=== PATIENT | female | born 1950 | race African-American/Black ===

== ENCOUNTER → 2016-06-28 | Outpatient (CLI) | payer BC, OTHER ==
[~2016-06-28] VITALS: Ht 165.1 cm; Wt 73.5 kg
[~2016-06-28] MED LIST: ADULT LOW DOSE81 MG PO; ALKA-SELTZER PL25 MG PO; ATENOLOL-CHLOR1 EACH PO; CELEBREX 200 M200 MG PO; ESTRO TOP; ESTROGEL; ESTROGEL50 GM; HYDROCODON-ACE1 EAC7 PO; HYDROCODON-ACE1 EACH PO; HYDROCODONE-AP1 EAC6 PO; HYDROXYCHLOROQ200 M1 PO; IMDUR 30 MG TAB30 M1 PO; MEDROL DOSPAK21 TA1 PO; MEDROLDOSEPACK PO; METFORMIN HCL500 MG PO; PROGESTERONE200 MG PO; PROMETRIUM100 MG PO; PROTONIX 20 MG20 M1 PO; PROTONIX40 M2 PO; SONATA10 MG PO; SUDAFED 12 HR120 MG PO; TESTO TOP; TESTOSTERONE TROCHE; TRADJENTA PO; VICODIN 5-5001 EACH PO; ZOCOR 10 MG TAB10 MG PO; [UNRECOGNIZED DRUG - OTHER] PO
--- NOTE | ~2016-06-28 | HPC ---
[facility] [place] [address] PAIN MANAGEMENT CONSULTATION Name: BRANDO GOODRICH Room #: [facility] MTyler.#: [id number] Admission: 06/28/16 Attend Phys: Denver Almanzar MD Discharge: Date of : 54 Report #: [id number] THIS REPORT FOR: //name// CC: Esthela Almanzar DATE OF SERVICE: 06/28/2016 CHIEF COMPLAINT: Pain has been better, but is starting to increase. FOLLOWUP HISTORY: The patient is a 66-year-old female who has been followed in the pain clinic because of lumbar radiculopathy. She has undergone physical therapy. She feels that physical therapy has been helpful. She notes that she is able to engage in activities which were not possible before the physical therapy. She continues to do the exercises which had been prescribed. Overall, she feels that her pain has improved and she notes greater mobility with the physical therapy activities. She rates her pain as a 5/10. She continues to have pain and discomfort in the low back area with pain radiating down into both legs. She is having some numbness and tingling sensation in her feet. She notes that the pain improves with hot bath, rest, sitting, massage as well as with stretching. She has returned today for another epidural steroid injection. These are quite helpful in the past and she would like to proceed with another. PHYSICAL EXAMINATION: Blood pressure is 114/86, pulse 76, respiratory rate 14, room air saturation is 97%. The patient's BMI is 27. She has pain and discomfort in the lower portion of her back with pain radiating down into both buttocks area in the L3-L4 distribution bilaterally. IMPRESSION: 1. Lumbar radiculopathy. 2. Diabetes. 3. Hyperlipidemia. RECOMMENDATIONS: We will proceed with another epidural steroid injection. The patient gets greater than 50% improvement after the injections and would like to proceed with another. Risks and benefits were again reviewed. Possible complications were discussed. The patient elects to proceed. PROCEDURE NOTE: The patient was placed in the prone position. Fluoroscopy was used to identify the L3-L4 interspace. This area had been sterilely prepped with Betadine and infiltrated with 0.25% bupivacaine. A total of 80 mg Depo-Medrol, 40 mg triamcinolone and 2 mL of 0.25% bupivacaine were injected. The patient tolerated the procedure well. She will monitor blood glucose [address] [address] PAIN MANAGEMENT CONSULTATION Name: BRANDO GOODRICH Room #: REG CLI NevaehMadeline#: [id number] Admission: 06/28/16 Attend Phys: Denver Almanzar MD Discharge: Date of : 54 Report #: [id number] levels. We would like to thank you for letting us participate in her care. We hope she continues to improve. <ELECTRONICALLY SIGNED> By: Denver Almanzar MD 07/16/16 1018 1314 [id number] Denver Almanzar MD /andrea
[2016-06-28 11:42] VITALS: BP 114/86
== END | disposition home or self-care (01) ==
LOC: PAIN 07:19
DX: M54.16 Radiculopathy, lumbar region (principal); E78.5 Hyperlipidemia, unspecified; E11.9 Type 2 diabetes mellitus without complications; G89.29 Other chronic pain

== ENCOUNTER → 2016-08-28 | Outpatient (CLI) | payer BC, OTHER ==
[~2016-08-28] VITALS: Ht 165.1 cm; Wt 72.7 kg
--- NOTE | ~2016-08-28 | HPC ---
[facility] [address] [place] [address] PAIN MANAGEMENT CONSULTATION Name: BRANDO GOODRICH Room #: REG [facility].#: [id number] Admission: 08/28/16 Attend Phys: Denver Almanzar MD Discharge: Date of : 54 Report #: [id number] THIS REPORT FOR: //name// CC: Esthela Almanzar The patient was seen on 08/28/[address] Nimesh Almanzar. FOLLOWUP COMPLAINT: "Here for an injection, but I think I am catching a cold." FOLLOWUP HISTORY: The patient is a 66-year-old female who has been followed in the pain clinic because of pain involving her lumbar area. She suffers from lumbar radiculopathy in the L3-L4 distribution. She has noted some scratchiness in her throat. She has noted some bit of a temperature. She is experiencing some muscle myalgias. She feels like she may be catching a cold. PHYSICAL EXAMINATION: VITAL SIGNS: Blood pressure is 124/96, pulse 123, respiratory rate 16, , saturation is 99%. GENERAL: Height 5 feet 5 inches, weight 72 kilograms. BMI is 26. HEENT: The patient has noted the onset of a scratchy throat. She is having some increased cough. She does feel somewhat achy and she does not feel 100%. IMPRESSION: 1. sore throat, which is increasing, increased cough, elevated temperature with some mild fascial pain as well as some discomfort in the joints. Possibly onset of flu-like symptoms. 2. Lumbar radiculopathy in the L3-L4 position, which increased, improves by greater than 50% after epidural steroid injections. 3. Diabetes. 4. Hyperlipidemia. RECOMMENDATIONS: We discussed treatment options with the patient. Given that she is having some similar symptoms consistent with the flu, she will return next week for possibility of an epidural steroid injection. She feels ill and I would recommend that she remained home this week. She could return to work on 09/02/2016. She does have a mask over her face because of her respiratory symptoms. By: 1207 1247 Denver Almanzar MD /nt
[2016-08-28 09:48] VITALS: BP 124/96
== END | disposition home or self-care (01) ==
LOC: PAIN 08-23 11:09
DX: M54.16 Radiculopathy, lumbar region (principal); E11.9 Type 2 diabetes mellitus without complications; E78.5 Hyperlipidemia, unspecified; I10 Essential (primary) hypertension

== ENCOUNTER → 2016-09-06 | Outpatient (CLI) | payer BC, OTHER ==
[~2016-09-06] VITALS: Ht 165.1 cm; Wt 73.8 kg
--- NOTE | ~2016-09-06 | HPC ---
[facility] [place] [address] PAIN MANAGEMENT CONSULTATION Name: BRANDO GOODRICH Room #: REG LISA Nevaeh.#: [id number] Admission: 09/06/16 Attend Phys: Denver Almanzar MD Discharge: Date of : 54 Report #: [id number] THIS REPORT FOR: //name// CC: Esthela Almanzar DATE OF SERVICE: 09/06/2016 PRIMARY CARE PHYSICIAN: Esthela Castro M.D. FOLLOWUP COMPLAINT: "My cold is better." FOLLOWUP HISTORY: The patient is a 66-year-old female who has been seen in the pain clinic for quite a number of years. She suffers from lumbar radiculopathy. She finds that epidural steroid injections are quite beneficial. She was here last week, but unable to undergo procedure secondary to being ill. She has returned today for an epidural steroid injection. She rates her pain as a 7/10. She is having pain in the lower portion of her back with pain, which is going bilaterally down into her legs with numbness, tingling and this involves the anterior portion of her thighs. PHYSICAL EXAMINATION: VITAL SIGNS: Blood pressure 115/77, pulse 92, respiratory rate 14 and room air saturation is 96. ASSESSMENT: History of lumbar radiculopathy. Now feeling better that her cold has resolved. She would like to proceed with an epidural steroid injection. Pain continues to be in the L3-L4 distribution bilaterally. IMPRESSION: 1. Lumbar radiculopathy. 2. Diabetes. 3. Hyperlipidemia. RECOMMENDATIONS: We will proceed with an epidural steroid injection. Risks and benefits were again reviewed and the patient elects to proceed. PROCEDURE NOTE: The patient was placed in the prone position. Fluoroscopy was used to identify the L3-L4 interspace. This area had been sterilely prepped with Betadine and infiltrated with 0.25% bupivacaine. Total of 80 mg Depo-Medrol, 40 mg triamcinolone and 2 mL of 0.25% bupivacaine was injected. The patient tolerated the procedure well. There were no complications. We [address] [address] PAIN MANAGEMENT CONSULTATION Name: BRANDO GOODRICH Room #: REG CLAranza Steve#: [id number] Admission: 09/06/16 Attend Phys: Denver Almanzar MD Discharge: Date of : 54 Report #: [id number] would like to thank you for letting us participate in her care. The patient's pain decreased from 7-0 at the time of discharge. By: [id number] [id number] Denver Almanzar MD /nt
[2016-09-06 13:48] VITALS: BP 115/77
== END | disposition home or self-care (01) ==
LOC: PAIN 07:09
DX: M54.16 Radiculopathy, lumbar region (principal); E11.9 Type 2 diabetes mellitus without complications; E78.5 Hyperlipidemia, unspecified

== ENCOUNTER → 2016-10-23 | Outpatient (CLI) | payer BC, OTHER ==
[~2016-10-23] VITALS: Ht 165.1 cm; Wt 72.4 kg
--- NOTE | ~2016-10-23 | HPC ---
[facility] [place] [address] PAIN MANAGEMENT CONSULTATION Name: BRANDO GOODRICH Room #: REG LISA VelardeMadelineAllison.#: [id number] Admission: 10/23/16 Attend Phys: Denver Almanzar MD Discharge: Date of : 54 Report #: [id number] THIS REPORT FOR: //name// CC: Esthela Almanzar DATE OF SERVICE: 10/23/2016 FOLLOWUP COMPLAINT: I have got some pain in the back. FOLLOWUP HISTORY: The patient is a 66-year-old female who has been followed in the pain clinic because of lumbar radiculopathy. She has undergone epidural steroid injections. She generally gets greater than 50% benefit after each epidural steroid injection. She has noticed that her pain has recurred. She rates it as a 5/10 at this juncture. She is experiencing pain in the low back area with pain involving her right groin as well. She does have numbness and tingling in her feet. The right side/right leg is most problematic. She would like to proceed with another epidural steroid injection. She has had no problems with them in the past. She has no problems with complications from steroid use. She does have diabetes and monitors her blood sugar level, it has not been problematic in the past. PHYSICAL EXAMINATION: Blood pressure is 113/72, pulse 92, respiratory rate 16, room air saturation is 98%. The patient has pain and discomfort radiating down into the lower portion of her back involving the right leg, right groin with numbness and tingling in her feet. IMPRESSION: Lumbar radiculopathy improves greater than 50% with epidural steroid injections. The patient also has some pain and discomfort involving the right groin area. Movement of her hip does cause some pain focussing in the groin area. We will examine this with an x-ray with an anterior and lateral views. We will proceed at this juncture with an epidural steroid injection. IMPRESSION: 1. Lumbar radiculopathy with pain radiating down into the right leg with numbness and tingling. 2. Right groin pain, which is not inconsistent with hip pathology. 3. Diabetes, stable. 4. Hyperlipidemia. RECOMMENDATIONS: We will proceed with an epidural steroid injection. Again, risks and benefits of the procedure were discussed. Possible complications were reviewed. The patient elects to proceed. PROCEDURE NOTE: The patient was placed in the prone position. Fluoroscopy was [address] [address] PAIN MANAGEMENT CONSULTATION Name: BRANDO GOODRICH Room #: REG CLI Juma#: [id number] Admission: 10/23/16 Attend Phys: Denver Almanzar MD Discharge: Date of : 54 Report #: [id number] used to identify the right L3-L4 area. It had been sterilely prepped with Betadine and infiltrated with 0.25% bupivacaine. Total of 80 mg Depo-Medrol, 40 mg triamcinolone were injected using a 17-gauge Tuohy needle. The patient tolerated the procedure well. There were no complications. She will follow up in the future as needed. We would like to thank you for letting us participate in her care. We hope she continues to improve. By: [id number] [id number] Denver Almanzar MD /nt
[2016-10-23 11:04] VITALS: BP 113/72
== END ==
LOC: PAIN 07:09
DX: M54.16 Radiculopathy, lumbar region (principal); E11.9 Type 2 diabetes mellitus without complications; E78.5 Hyperlipidemia, unspecified; I10 Essential (primary) hypertension

== ENCOUNTER → 2017-01-01 | Outpatient (CLI) | payer BC, OTHER ==
[~2017-01-01] VITALS: Ht 165.1 cm; Wt 72.1 kg
[~2017-01-01] MED LIST changes: +NEURONTIN 300300 M1 PO
--- NOTE | ~2017-01-01 | HPC ---
[facility] [address] [place] [address] PAIN MANAGEMENT CONSULTATION Name: BRANDO GOODRICH Room #: REG LISA MadelineAllison.#: [id number] Admission: 01/01/17 Attend Phys: Denver Almanzar MD Discharge: Date of : 54 Report #: [id number] THIS REPORT FOR: //name// CC: Esthela Almanzar DATE OF SERVICE: 01/01/2017 FOLLOWUP COMPLAINT: The pain was better and I took less medicines after the last injection. FOLLOWUP HISTORY: The patient is a 66-year-old female who has been seen in the pain clinic because of lumbar radiculopathy. She states that she continues to note some weakness in her legs. She went to physical therapy and did note some improvement. She continues to monitor her blood sugars. She states that her A1c's are in the 6 range. She would like to proceed with another injection. She is having quite a bit of pain in her right hip. She rates her pain as a 4/10. Standing, walking and lying down can exacerbate her pain. Pain is improved by hot bath, rest, sitting, massage and stretching. She feels that the use of peppermint cream can be helpful as well. PHYSICAL EXAMINATION: Blood pressure 119/67, pulse 96, respiratory rate 14 and room air saturation is 100%. Height 5 feet 5 inches, weight 159 pounds, BMI is 26. The patient walks with a slight antalgic gait with a slight forward lean. She seems to favor the right hip. IMPRESSION: 1. Lumbar radiculopathy with pain radiating down into the right leg with numbness and tingling. 2. Right hip pain. X-ray of the hip dated 11/25/2016 shows no definite acute bony abnormalities. 3. 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 4. Diabetes/stable. 5. Hyperlipidemia. RECOMMENDATIONS: We will continue with her current medical regimen. She finds that hydrocodone and Celebrex are helpful, we will renew those medications. We will proceed with an epidural steroid injection. Risks and benefits again were reviewed. Possible complications were discussed. The patient elects to proceed. PROCEDURE NOTE: The patient was placed in the prone position. Fluoroscopy was used to identify the L3-L4 interspace. This area had been sterilely prepped with Betadine and infiltrated with 0.25% bupivacaine. Total of 80 mg Depo-Medrol, 40 mg triamcinolone and 2 mL of 0.25% bupivacaine was injected. [address] [address] PAIN MANAGEMENT CONSULTATION Name: BRANDO GOODRICH [id number] Admission: 01/01/17 Attend Phys: Denver Almanzar MD Discharge: Date of : 54 Report #: [id number] The patient's pain decreased from 4 to 0 at the time of her discharge. We would like to thank you for letting us participate in her care. We hope she continues to improve. By: 1609 1826 Denver Almanzar MD /andrea
[2017-01-01 10:55] VITALS: BP 119/87
== END | disposition home or self-care (01) ==
LOC: PAIN 07:29
DX: M54.16 Radiculopathy, lumbar region (principal); M25.551 Pain in right hip; M54.9 Dorsalgia, unspecified; E11.9 Type 2 diabetes mellitus without complications; E78.5 Hyperlipidemia, unspecified; Z88.2 Allergy status to sulfonamides; Z88.8 Allergy status to other drugs, medicaments and biological substances; Z79.899 Other long term (current) drug therapy; Z98.890 Other specified postprocedural states

== ENCOUNTER → 2017-02-19 | Outpatient (CLI) | payer OTHER, BC ==
[~2017-02-19] VITALS: Ht 165.1 cm; Wt 73.0 kg
--- NOTE | ~2017-02-19 | HPC ---
[facility] [address] [place] [address] PAIN MANAGEMENT CONSULTATION Name: BRANDO GOODRICH [facility] #: [facility] [id number] Admission: 02/19/17 Attend Phys: Denver Almanzar MD Discharge: Date of : 54 Report #: [id number] THIS REPORT FOR: //name// CC: Esthela Almanzar DATE OF SERVICE: 02/19/2017 FOLLOWUP COMPLAINT: I would like to get an epidural steroid injection in the near future. FOLLOWUP HISTORY: The patient is a 67-year-old female who has been seen in the pain clinic because of chronic low back pain with lumbar radicular symptoms. She has undergone epidural steroid injections over the years. She finds that these are helpful. She has gone to physical therapy. Exercises and tips on how to decrease pain have been given. She feels that these exercises have been helpful. She has tried to increase the strength in the anterior portion of her thighs bilaterally. She still occasionally has times where it feels like her legs might give way. She has some pain and discomfort in the right hip. She attributes this to walking with a change in her gait, which has exacerbated this hip pain. PHYSICAL EXAMINATION: GENERAL: The patient is alert. No evidence of over sedation. She appears to be taking her medications as prescribed. VITAL SIGNS: Blood pressure 118/82, pulse 84, respiratory rate 14, room air saturation 98%. Height 5 feet 5 inches, weight is 161 pounds, BMI is 26.8. MUSCULOSKELETAL: This patient continues to have pain and discomfort, which radiates down into her right hip and leg with numbness, tingling and weakness. She has a perception that her leg and thigh muscles are improving in strength secondary to her physical therapy activities. She still walks with a somewhat antalgic gait with a slight forward lean. IMPRESSION: 1. Lumbar radiculopathy with pain radiating into the right leg with numbness and tingling. 2. Right hip pain. 3. 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 4. Diabetes -- stable. The patient does note some increase in blood sugars after the injection and makes modifications to her pain medication to help control them. 5. Hyperlipidemia. RECOMMENDATIONS: We discussed treatment options with the patient. Within the next few weeks, the patient will return to the pain clinic at which time she [address] [address] PAIN MANAGEMENT CONSULTATION Name: IONA MORENOBRANDO Room #: REG CLAranza Steve#: [id number] Admission: 02/19/17 Attend Phys: Denver Almanzar MD Discharge: Date of : 54 Report #: [id number] will undergo an epidural steroid injection. Her medications have been written for today and include Celebrex, hydrocodone and Sonata. She did find that Celebrex was helpful. A script for this medication has been rewritten as well. By: [id number] [id number] Denver Almnazar MD /andrea
[2017-02-19 10:10] VITALS: BP 118/82
== END | disposition home or self-care (01) ==
LOC: PAIN 07:06
DX: M54.16 Radiculopathy, lumbar region (principal); E11.9 Type 2 diabetes mellitus without complications; E78.5 Hyperlipidemia, unspecified; M25.551 Pain in right hip

== ENCOUNTER → 2017-07-09 | Outpatient (CLI) | payer OTHER ==
[~2017-07-09] VITALS: Ht 167.6 cm; Wt 74.4 kg
[~2017-07-09] MED LIST changes: +LIDOCAINE1 EACH TRANSDERM
--- NOTE | ~2017-07-09 | HPC ---
[facility] [place] [address] PAIN MANAGEMENT CONSULTATION Name: BRANDO GOODRICH Room #: REG LISA Evi#: [id number] Admission: 07/09/17 Attend Phys: Denver Almanzar MD Discharge: Date of : 54 Report #: [id number] THIS REPORT FOR: //name// CC: MIHIR Almanzar DATE OF SERVICE: 07/09/2017 FOLLOWUP COMPLAINT: "I would like to have another injection. Pain improves, but still is there." FOLLOWUP HISTORY: The patient is a 67-year-old female who has been followed in the pain clinic because of chronic pain involving her low back area. She has had pain, which continues to improve with epidural steroid injections. She has been experiencing more discomfort at this juncture. She states that she is following up with a surgeon. It is felt that she may be approaching the time where surgery might be a needed intervention. She rates her pain as 5/7 at this juncture. She is experiencing some pain radiating down into her right hip. She strained her right knee and has been doing physical therapy at this juncture. 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 She continues to have some numbness, which radiates down her low back into her feet. Standing, walking and lying down can sometimes exacerbate the pain. Use of medications, hot tub, resting and massage as well as stretching has been beneficial. ALLERGIES: SULFA, KEFLEX, NEGIN INHIBITORS. CURRENT MEDICATION REGIMEN: Reviewed and include Celebrex 200 mg, Sonata 10 mg at bedtime p.r.n., hydrocodone 5/325 four times daily, gabapentin 600 mg daily, atenolol/chlorthalidone 50/25, Protonix 20 mg, Glucophage 500 mg, Zocor 10 mg and Imdur 30 mg. PHYSICAL EXAMINATION: GENERAL: The patient is a well-developed black female. Appears her stated age, alert and oriented x 3 [address], [address] and time. Speech is fluent. Affect is appropriate. HEENT: Normocephalic, atraumatic. Extraocular eye muscles are intact. Sclerae nonicteric. Buccal membranes moist. Hearing is within normal limit. NECK: Without adenopathy or JVD. LUNGS: Clear to auscultation. HEART: Regular rate. EXREMITIES: Upper extremities 5/5 strength in the major muscle groups of the upper extremity, biceps tendon reflexes +1 bilaterally, triceps and brachial radialis trace muscle strength 5/5. MUSCULOSKELETAL: No significant scoliosis or lordosis. The patient walks with a forward leaning gait, slightly antalgic gait. She has pain and discomfort, [place] [address] PAIN MANAGEMENT CONSULTATION Name: MONSON BRANDO MORENO Room #: REG LISA Steve#: [id number] Admission: 07/09/17 Attend Phys: Denver Almanzar MD Discharge: Date of : 54 Report #: [id number] which radiates down into the right leg with numbness, tingling in the L5-S1 distribution. Has some right hip pain and discomfort. Positive straight leg raise on the right. PAIN CLINIC ASSESSMENT: 1. Some signs of arthritis in the low back area with changes in the lumbar area with spondylosis. 2. Height 5 feet 6 inches, weight 164 pounds, BMI is 26. 3. Vital signs: Blood pressure 136/85, pulse 108, respiratory rate 16, room air saturation 97%. 4. Pain intensity 10/16. 5. Fall risk. The patient has not fallen in the last 3 months. She does not use a cane, but does walk in a somewhat forward leaning fashion. 6. Blood thinner. The patient is not on blood thinners. 7. History of hypertension. The patient is hypertensive and being treated appropriately. 8. Opioid therapy. The patient does use opioid medications as prescribed from the pain clinic and only gets her medications at the pain clinic. 9. Risk assessment tool. 10. Functional assessment tool. 11. Recreational drug use: None. Tobacco: None. Alcohol use, rare. IMPRESSION: 1. Chronic lumbar radicular pain radiating down to the right leg with numbness and tingling in the L4-L5 distribution. 2. Right hip pain. 3. 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 4. Diabetes -- stable. 5. Hyperlipidemia. 6. Hypertension. RECOMMENDATIONS: We discussed the treatment options with the patient. Risks and benefits of an epidural steroid injection were again reviewed. Possible complication of the procedure were discussed. At this juncture, the patient is having pain and discomfort and would like to proceed with another epidural steroid injection. We will proceed with another epidural steroid injection. Risks and benefits were again reviewed. We discussed long-term use of opioids. She states that she has taken the medication as prescribed. We discussed the possible complications, which could include addiction as well as tolerance. She states that the medications are helpful enabling her to participate in activities of daily living, she would not be able to do without their use. She is not having any problems with mentation. She is not having any problems with chronic constipation. She would like to proceed with an epidural steroid injection. She is going to follow up with an orthopedic doctor to see whether or not a [address] [address] PAIN MANAGEMENT CONSULTATION Name: BRANDO GOODRICH Room #: REG [facility]#: [id number] Admission: 07/09/17 Attend Phys: Denver Almanzar MD Discharge: Date of : 54 Report #: [id number] surgical option would be warranted at this juncture. PROCEDURE NOTE: The patient was placed in the prone position. Fluoroscopy was used to identify the L4-L5 interspace. This area had been sterilely prepped with Betadine and infiltrated with 0.25% bupivacaine. Total of 80 mg of Depo-Medrol, 40 mg of triamcinolone and 2 mL of 0.5% bupivacaine was injected after the area had been identified using fluoroscopy, using an AP positioning as well as lateral viewing. The needle placement was in the target site. The medications were injected. The patient had no complications during this procedure. She will follow up in the future as needed. We would like to thank you for letting us participate in her care. We hope she continues to improve. The patient will also continue with physical therapy. <ELECTRONICALLY SIGNED> By: Denver Almanzar MD 08/20/17 1424 1424 0040 Denver Almanzar MD /[facility]
[2017-07-09 11:24] VITALS: BP 136/85
== END ==
LOC: PAIN 06-18 07:00
DX: M54.16 Radiculopathy, lumbar region (principal); E11.9 Type 2 diabetes mellitus without complications; E78.5 Hyperlipidemia, unspecified; I10 Essential (primary) hypertension; F11.20 Opioid dependence, uncomplicated; Z79.899 Other long term (current) drug therapy; Z88.8 Allergy status to other drugs, medicaments and biological substances

== ENCOUNTER → 2017-09-12 | Outpatient (CLI) | payer OTHER ==
[~2017-09-12] VITALS: Ht 165.1 cm; Wt 74.8 kg
--- NOTE | ~2017-09-12 | HPC ---
[facility] [address] [place] [address] PAIN MANAGEMENT CONSULTATION Name: BRANDO GOODRICH Room #: REG LISA Nevaeh.#: [id number] Admission: 09/12/17 Attend Phys: Denver Almanzar MD Discharge: Date of : 54 Report #: [id number] THIS REPORT FOR: //name// CC: Esthela Almanzar DATE OF SERVICE: 09/12/2017 FOLLOWUP COMPLAINT: "I am going to [place], and I want another injection before I go. The last one lasted greater than 6 weeks and was really good." FOLLOWUP HISTORY: The patient is a 67-year-old female, who has been followed in the pain clinic because of chronic pain involving her low back. She has undergone epidural steroid injections for quite some time. She notes that her pain continues to be problematic. She is considering going to [place] in the next few days. She would like to undergo an epidural steroid injection, so that she could continue to enjoy her vacation. She is going for 20th year anniversary. She has had no complication from previous surgeries. She continues to have some pain and discomfort in her right hip. She has some pain and discomfort in her knees as well. Continues to do physical therapy to help with this discomfort. She finds that hydrocodone is helpful. She feels that Sonata 10 mg at bedtime is helpful with sleep as well as Celebrex medications. She would like to have these medications renewed as well. She takes hydrocodone 5/325 episodically. Denies any problems with mentation. Denies any problems with bowel or bladder function. States that she keeps her medications in a controlled environment. Notes that her pain is somewhat helped with use of medications, resting in a hot tub as well as stretching and with massages. ALLERGIES: SULFA, KEFLEX, NEGIN INHIBITORS. CURRENT MEDICATIONS: Include, Celebrex 200 mg p.o. daily, Sonata 10 mg at bedtime, hydrocodone 5/325 q.i.d., gabapentin 600 mg daily, atenolol/chlorthalidone 50/25, Protonix 20 mg, Glucophage 500 mg, Zocor 10 mg, and Imdur 30 mg. PAIN CLINIC ASSESSMENT: 1. History of osteoarthritis with changes in the lower portion of her back, which is problematic and cause some lumbar radicular pain. 2. Height 5 feet 5 inches, weight 164 pounds, BMI is 27.4. 3. VITAL SIGNS: Blood pressure 124/84. Pulse 88, respiratory rate 16, room air saturation is 97%. 4. Pain intensity 08/16. 5. Fall risk. The patient has not fallen in the last 3 months. 6. Blood thinner. The patient is not on a blood thinner. 7. History of hypertension. The patient is [place] [address] PAIN MANAGEMENT CONSULTATION Name: MICHAEL GOODRICHY [id number] Admission: 09/12/17 Attend Phys: Denver Almanzar MD Discharge: Date of : 54 Report #: [id number] 8. Opioid therapy. The patient has signed a contract with the pain clinic to get her medications in only one area. 9. Risk assessment tool. 10. Functional assessment tool. 11. Recreational drug use. Denies use of recreational drugs. 12. Tobacco: Never smokes tobacco. 13. Alcohol: Frequent use daily, 1-2 beverages daily. PHYSICAL EXAMINATION: GENERAL: The patient is a well-developed black female. She appears her stated age. ORIENTATION: The patient is alert and oriented x 3. AFFECT: The patient's affect is appropriate. Speech is fluent. HEENT: Normocephalic, atraumatic. Extraocular eye muscles intact. Hearing is within normal limits. Conjunctive is clear. Mucous membranes are moist. NECK: Without adenopathy or JVD. HEART: Regular rate. ABDOMEN: Nontender. LUNGS: Clear to auscultation. UPPER EXTREMITY: Muscle straight is judged to be 5/5 for the major muscle groups with commercial crabber strength of 5/5, sensory within normal limits. MUSCULOSKELETAL: The patient does walk with a slightly bent posture. The patient has some pain and discomfort in the lower portion of her back with pain radiating down into the legs as well as right hip with discomfort in both lower extremities. Note, some numbness and tingling in her feet. Notes worsening of pain with standing, walking and sometimes lying down. LABORATORY DATA: No new laboratory values are available at this interview. IMPRESSION: 1. Chronic lumbar radicular pain radiating down the right leg with numbness and tingling in the L4-L5 distribution. 2. Right hip pain. 3. 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 4. Diabetes. 5. Hyperlipidemia. 6. Hypertension. RECOMMENDATIONS: We discussed treatment options with the patient. Risks and benefits of an epidural steroid injection were again reviewed. Possible complications were discussed. They could include, but are not limited to infection, increased muscle soreness, headache, bleeding, worsening of pain, and damage of nerves. The patient elects to proceed. She is going to go on anniversary vacation to [place] and would like to proceed with an epidural steroid injection. [address] [address] PAIN MANAGEMENT CONSULTATION Name: BRANDO GOODRICH Room #: REG [facility]#: [id number] Admission: 09/12/17 Attend Phys: Denver Almanzar MD Discharge: Date of : 54 Report #: [id number] RECOMMENDATIONS: We discussed treatment options with the patient. She is aware of the possible complication and would like to proceed. She has talked to one of the doctors at [facility]. He has proposed that she could undergo back surgery in the future. At this juncture, I think it would be reasonable for her to get a second opinion. She feels that that would be reasonable as well. We will have her consider talking to Dr. Tom Lowry, who is a neurosurgeon at [facility]. She will undergo an epidural steroid injection today. A script for her medications of Sonata 10 mg at bedtime, Celebrex 200 mg, hydrocodone ____ will be rewritten in the future if she needs it. We would like to thank you for letting us participate in her care. We hope she continues to improve. PROCEDURE NOTE: The patient was placed in the prone position. Fluoroscopy was used to identify the L5-S1 area on the right. Fluoroscopy anterior, posterior as well as lateral imaging was used to identify the target area. This area had been sterilely prepped with Betadine and infiltrated with 0.25% bupivacaine. Total of 80 mg Depo-Medrol, 40 mg triamcinolone and 2 mL of 0.25% bupivacaine was injected. The patient tolerated the procedure well. There were no complications. She did not complain of pain or discomfort during the procedure. She was then taken to the recovery room. A Band-Aid was placed in appropriate place. There was no significant bleeding. She remained in the pain clinic for an appropriate amount of time. She will follow up in the future as needed. We would like to thank you for letting us participate in her care. We hope she continues to improve. By: [id number] Denver Almanzar MD /andrea
[2017-09-12 11:25] VITALS: BP 124/81
== END | disposition home or self-care (01) ==
LOC: PAIN 06:53
DX: M54.16 Radiculopathy, lumbar region (principal); G89.29 Other chronic pain; M25.551 Pain in right hip; M16.11 Unilateral primary osteoarthritis, right hip; I10 Essential (primary) hypertension; E11.9 Type 2 diabetes mellitus without complications; E78.5 Hyperlipidemia, unspecified; Z88.2 Allergy status to sulfonamides; Z88.8 Allergy status to other drugs, medicaments and biological substances; Z79.891 Long term (current) use of opiate analgesic; Z98.890 Other specified postprocedural states; Z79.899 Other long term (current) drug therapy

== ENCOUNTER → 2017-11-26 | Outpatient (CLI) | payer OTHER ==
[~2017-11-26] VITALS: Ht 165.1 cm; Wt 73.2 kg
--- NOTE | ~2017-11-26 | HPC ---
[facility] [place] [address] PAIN MANAGEMENT CONSULTATION Name: IONA MORENOBRANDO Room #: REG LISA Nevaeh.#: [id number] Admission: 11/26/17 Attend Phys: Denver Almanzar MD Discharge: Date of : 54 Report #: [id number] THIS REPORT FOR: //name// CC: Esthela Almanzar DATE OF SERVICE: 11/26/2017 FOLLOWUP COMPLAINT: "I would like to have another injection. I am going to consider surgery in 2019." FOLLOWUP HISTORY: The patient is a 67-year-old female who has been followed in the Pain Clinic because of lumbar radiculopathy. She finds that she has some significant pathology ongoing. She has talked with her surgeon. She says that there will be need for rods to be placed in her low back area. There will probably be about a 6 month healing process. She has a number of items she would like to get done prior to this. She has trips planned for [place] as well as another trip in March. She would like to continue on a conservative approach at this point. Noted that she has gotten some significant benefit from the last epidural steroid injection. At this juncture, she would like to proceed with another injection because her pain has increased. She has had no complications from the procedure. She continues to monitor her blood sugars. She continues to have some numbness and tingling radiating down into her feet. Notes that standing, walking, and other activities of daily living can exacerbate her pain. She continues to use hot tub as well as medications. She continues to find stretching beneficial. She would like to proceed today with an epidural steroid injection and would like to have her medications renewed. ALLERGIES: SULFA, KEFLEX, NEGIN INHIBITORS. CURRENT MEDICATIONS: Celebrex 200 mg, Sonata 10 mg at bedtime p.r.n., hydrocodone 5/325 q.i.d., gabapentin 600 mg daily, atenolol/chlorthalidone trazodone 50/25 mg, Protonix 20 mg, Glucophage 500 mg, Zocor 10 mg, and Imdur 30 mg. PAIN CLINIC ASSESSMENT: 1. History of osteoarthritis: The patient has arthritic changes in her spine, left upper extremity with arthritic problems, right upper extremity arthritic problems. 2. Height 5 feet 5 inches, weight 161 pounds, BMI is 26.9. 3. Vital signs: Blood pressure 116/82, pulse 79, respiratory rate 16, room air saturation 99%. 4. Pain intensity: 4/10. 5. Fall risk: The patient has not fallen in the last 3 months. 6. Blood thinner: The patient is not [place] [address] PAIN MANAGEMENT CONSULTATION Name: IONA MORENOBRANDO Room #: REG CLI [facility].#: [id number] Admission: 11/26/17 Attend Phys: Denver Almanzar MD Discharge: Date of : 54 Report #: [id number] 7. History of hypertension: The patient is being treated for hypertension. 8. Opioid therapy greater than 6 weeks: The patient receives her medications from the Pain Clinic, one source. 9. Risk assessment tool: The patient denies problems with her medication. 10. Functional assessment tool. 11. Recreational drug use: The patient denies use of recreational drugs. 12. Tobacco: The patient has never smoked. 13. Alcohol: The patient drinks alcoholic beverages approximately one glass daily. PHYSICAL EXAMINATION: GENERAL: The patient is a well-developed, well-nourished, black female. She appears her stated age. She is alert and oriented x 3. Her speech is fluent. Affect is appropriate. HEENT: Normocephalic, atraumatic. Extraocular eye muscles intact. Sclerae nonicteric. Buccal membranes moist. Hearing within normal limits. NECK: Without adenopathy or JVD. LUNGS: Clear to auscultation. HEART: Regular rate, S1 and S2. EXTREMITIES: Upper 5/5 in the major muscle groups with symmetrical muscle bulk. MUSCULOSKELETAL: Without significant kyphosis or scoliosis, some lordosis. The patient walks with a forward leaning gait and with a slightly antalgic pace with complaint of pain that radiates down into her right leg with numbness and tingling in the L5-S1 distribution. The patient has history of right hip pain and discomfort. Positive straight leg raise on the right. IMPRESSION: 1. Chronic radicular pain radiating down into the right leg with numbness and tingling in the L4-L5 distribution. 2. Right hip pain. 3. Axial joint/narrowing of the right hip. 4. Diabetes, stable. 5. Hyperlipidemia. 6. Hypertension. RECOMMENDATIONS: We discussed treatment options with the patient. Risks and benefits of an epidural steroid injection were discussed. Possible complications were reviewed. The patient is aware of the possible complications, which could include but are not limited to infection, increased muscle soreness, headache, bleeding, worsening of pain, no improvement in pain. She agrees to proceed. The patient was taken to the procedure room. She was assisted in getting on the examination table. Her back was sterilely prepped with Betadine at the L5-S1 area. Fluoroscopy using anterior, posterior as well as lateral viewing were used to carefully place the needle in their appropriate place. The right [facility] [address] [place] [address] PAIN MANAGEMENT CONSULTATION Name: MICHAEL GOODRICHY Room #: REG LISA Evi#: [id number] Admission: 11/26/17 Attend Phys: Denver Almanzar MD Discharge: Date of : 54 Report #: [id number] paraspinal area was identified. This area had been infiltrated with 0.25% bupivacaine. A 17-gauge Tuohy with loss of resistance technique was used to gain access to the epidural space. There was no CSF, heme or paresthesia. Total of 80 mg Depo-Medrol, 40 mg triamcinolone, and 2 mL of 0.25% bupivacaine was injected. The patient tolerated the procedure well. A total of 8 seconds fluoroscopy time was used. The patient's pain decreased to 0-3 at the time of discharge. She will follow up in the future as needed. We would like to thank you for letting us participate in her care. We hope she continues to improve. <ELECTRONICALLY SIGNED> By: Denver Almanzar MD 11/27/17 0936 [id number] Denver Almanzar MD /nt
[2017-11-26 08:26] VITALS: BP 116/82
== END | disposition home or self-care (01) ==
LOC: PAIN 06:35
DX: M54.16 Radiculopathy, lumbar region (principal); G89.29 Other chronic pain; M25.551 Pain in right hip; I10 Essential (primary) hypertension; E78.5 Hyperlipidemia, unspecified; E11.9 Type 2 diabetes mellitus without complications; M16.11 Unilateral primary osteoarthritis, right hip; Z88.2 Allergy status to sulfonamides; Z79.899 Other long term (current) drug therapy; Z88.8 Allergy status to other drugs, medicaments and biological substances; Z98.890 Other specified postprocedural states

== ENCOUNTER → 2020-05-26 | Outpatient (CLI) | payer OTHER ==
[~2020-05-26] VITALS: Ht 165.1 cm; Wt 72.8 kg
[~2020-05-26] MED LIST changes: +AMITRIPTYLINE H10 M3 PO; +ATENOLOL 100MG100 MG PO; +CHLORTHALIDONE25 MG PO
[2020-05-26 07:57] VITALS: BP 125/82
--- NOTE | 2020-05-26 08:11 | NUR ---
Pain Clinic Assessment: 1. History of Osteoarthritis: SPINE Left Upper Extremity Right Upper Extremity History of Rheumatoid Arthritis: Not Applicable 2. Height: 5 ft. 5 in. 165.1 cm. Weight: 160.4 lb. oz. 72.757 kg. Patient's BMI: 26.7 3. Vital Signs: BP: 125/82 Pulse: 69 Resp: 18 Temp: 02 Sat: 98 ECG Mon: 4. Pain Intensity: 8 AT NIGHT 5. Fall Risk: Dizziness: N Needs help standing or walking: N Fallen in the last 3 months: N Fall risk comments: 6. Patient on Blood Thinner: None 7. History of Hypertension: Y 8. Opioid Therapy greater than 6 weeks: Y Opiate Contract Signed: 06/28/16 9. Risk Assessment Tool Provided: 10. Functional Assessment Tool: 11. Recreational Drug Use: Never Drug Type: Tobacco Use: Never Smoker Tobacco Type: Amount or Packs/day: How Many Years: Alcohol Use: Yes Frequency: Daily Quant: 1 GLASS OF WINE
== END ==
LOC: PAIN 06:49
PROVIDERS: ATTEND Anesthesiology Pain Medicine
DX: M54.16 Radiculopathy, lumbar region (principal); G57.02 Lesion of sciatic nerve, left lower limb; G89.29 Other chronic pain; E11.9 Type 2 diabetes mellitus without complications; E78.5 Hyperlipidemia, unspecified; I10 Essential (primary) hypertension; Z72.89 Other problems related to lifestyle; Z88.2 Allergy status to sulfonamides; Z88.8 Allergy status to other drugs, medicaments and biological substances

== ENCOUNTER → 2020-09-29 | Outpatient (CLI) | payer OTHER ==
[~2020-09-29] VITALS: Ht 165.1 cm; Wt 72.4 kg
[~2020-09-29] MED LIST changes: +AMITRIPTYLINE H10 M1 PO; +LYRICA 75 MG CA75 MG PO
[2020-09-29 09:28] VITALS: BP 110/80
--- NOTE | 2020-09-29 09:30 | NUR ---
Pain Clinic Assessment: 1. History of Osteoarthritis: SPINE Left Upper Extremity Right Upper Extremity History of Rheumatoid Arthritis: Not Applicable 2. Height: 5 ft. 5 in. 165.1 cm. Weight: 159.6 lb. oz. 72.394 kg. Patient's BMI: 26.6 3. Vital Signs: BP: 110/80 Pulse: 70 Resp: 16 Temp: 02 Sat: 99 ECG Mon: 4. Pain Intensity: 8 AT NIGHT 5. Fall Risk: Dizziness: N Needs help standing or walking: N Fallen in the last 3 months: Y Fall risk comments: 6. Patient on Blood Thinner: None 7. History of Hypertension: Y 8. Opioid Therapy greater than 6 weeks: N Opiate Contract Signed: 06/28/16 9. Risk Assessment Tool Provided: 10. Functional Assessment Tool: 11. Recreational Drug Use: Never Drug Type: Tobacco Use: Never Smoker Tobacco Type: Amount or Packs/day: How Many Years: Alcohol Use: Yes Frequency: Special Occasions Quant:
== END ==
LOC: PAIN 08:26
PROVIDERS: ATTEND Anesthesiology Pain Medicine
DX: G89.29 Other chronic pain (principal); R53.1 Weakness; K21.9 Gastro-esophageal reflux disease without esophagitis; I10 Essential (primary) hypertension; M19.90 Unspecified osteoarthritis, unspecified site; M25.851 Other specified joint disorders, right hip; E78.5 Hyperlipidemia, unspecified; Z98.1 Arthrodesis status; Z98.890 Other specified postprocedural states; Z88.2 Allergy status to sulfonamides; Z88.8 Allergy status to other drugs, medicaments and biological substances; Z79.891 Long term (current) use of opiate analgesic; Z79.899 Other long term (current) drug therapy

== ENCOUNTER → 2020-11-29 | Outpatient (CLI) | payer OTHER ==
[~2020-11-29] VITALS: Ht 165.1 cm; Wt 74.0 kg
[~2020-11-29] MED LIST changes: +ADVIL200 M1 PO; +BUTRANS1 EACH INTRADERM; +JANUVIA100 MG PO; +SONATA5 M1 PO; +TRAMADOL 50 MG50 MG PO
[2020-11-29 09:47] VITALS: BP 112/79
--- NOTE | 2020-11-29 10:05 | NUR ---
Pain Clinic Assessment: 1. History of Osteoarthritis: SPINE Left Upper Extremity Right Upper Extremity History of Rheumatoid Arthritis: Not Applicable 2. Height: 5 ft. 5 in. 165.1 cm. Weight: 163.2 lb. oz. 74.027 kg. Patient's BMI: 27.2 3. Vital Signs: BP: 112/79 Pulse: 69 Resp: 14 Temp: 02 Sat: 100 ECG Mon: 4. Pain Intensity: 6 5. Fall Risk: Dizziness: N Needs help standing or walking: N Fallen in the last 3 months: Y Fall risk comments: 6. Patient on Blood Thinner: None 7. History of Hypertension: Y 8. Opioid Therapy greater than 6 weeks: N Opiate Contract Signed: 06/28/16 9. Risk Assessment Tool Provided: 10. Functional Assessment Tool: 11. Recreational Drug Use: Never Drug Type: Tobacco Use: Never Smoker Tobacco Type: Amount or Packs/day: How Many Years: Alcohol Use: Yes Frequency: Quant:
== END ==
LOC: PAIN 07:01
PROVIDERS: ATTEND Anesthesiology Pain Medicine
DX: M54.16 Radiculopathy, lumbar region (principal); M25.551 Pain in right hip; R53.1 Weakness; E11.9 Type 2 diabetes mellitus without complications; E78.5 Hyperlipidemia, unspecified; I10 Essential (primary) hypertension; K21.9 Gastro-esophageal reflux disease without esophagitis; M19.90 Unspecified osteoarthritis, unspecified site; Z79.899 Other long term (current) drug therapy; Z72.89 Other problems related to lifestyle; Z88.2 Allergy status to sulfonamides

== ENCOUNTER → 2021-02-21 | Outpatient (CLI) | payer OTHER ==
[~2021-02-21] VITALS: Ht 165.1 cm; Wt 73.5 kg
[~2021-02-21] MED LIST changes: +ATENOLOL 50MG T50 M1 PO
[2021-02-21 09:53] VITALS: BP 108/75
--- NOTE | 2021-02-21 10:03 | NUR ---
Pain Clinic Assessment: 1. History of Osteoarthritis: SPINE Left Upper Extremity Right Upper Extremity History of Rheumatoid Arthritis: Not Applicable 2. Height: 5 ft. 5 in. 165.1 cm. Weight: 162.0 lb. oz. 73.483 kg. Patient's BMI: 27.0 3. Vital Signs: BP: 108/75 Pulse: 72 Resp: 16 Temp: 02 Sat: 100 ECG Mon: 4. Pain Intensity: 1 5. Fall Risk: Dizziness: N Needs help standing or walking: N Fallen in the last 3 months: N Fall risk comments: 6. Patient on Blood Thinner: None 7. History of Hypertension: Y 8. Opioid Therapy greater than 6 weeks: N Opiate Contract Signed: 06/28/16 9. Risk Assessment Tool Provided: 1-LOW 10. Functional Assessment Tool: 11. Recreational Drug Use: Never Drug Type: Tobacco Use: Never Smoker Tobacco Type: Amount or Packs/day: How Many Years: Alcohol Use: Yes Frequency: Special Occasions Quant: 1
== END ==
LOC: PAIN 07:00
PROVIDERS: ATTEND Clinical Nurse Specialist Adult Health
DX: E11.40 Type 2 diabetes mellitus with diabetic neuropathy, unspecified (principal); M54.16 Radiculopathy, lumbar region; M25.551 Pain in right hip; Z79.891 Long term (current) use of opiate analgesic; Z79.899 Other long term (current) drug therapy

== ENCOUNTER → 2021-05-25 | Outpatient (CLI) | payer OTHER ==
[~2021-05-25] VITALS: Ht 165.1 cm; Wt 75.8 kg
[2021-05-25 09:47] VITALS: BP 125/93
--- NOTE | 2021-05-25 09:48 | NUR ---
Pain Clinic Assessment: 1. History of Osteoarthritis: SPINE Left Upper Extremity Right Upper Extremity History of Rheumatoid Arthritis: Not Applicable 2. Height: 5 ft. 5 in. 165.1 cm. Weight: 167.0 lb. oz. 75.751 kg. Patient's BMI: 27.8 3. Vital Signs: BP: 125/93 Pulse: 93 Resp: 14 Temp: 02 Sat: 99 ECG Mon: 4. Pain Intensity: 1 5. Fall Risk: Dizziness: N Needs help standing or walking: N Fallen in the last 3 months: N Fall risk comments: 6. Patient on Blood Thinner: None 7. History of Hypertension: Y 8. Opioid Therapy greater than 6 weeks: N Opiate Contract Signed: 06/28/16 9. Risk Assessment Tool Provided: 1-LOW 10. Functional Assessment Tool: 11. Recreational Drug Use: Never Drug Type: Tobacco Use: Never Smoker Tobacco Type: Amount or Packs/day: How Many Years: Alcohol Use: Yes Frequency: Quant:
== END ==
LOC: PAIN 08:38
PROVIDERS: ATTEND Clinical Nurse Specialist Adult Health
DX: M54.16 Radiculopathy, lumbar region (principal); G62.9 Polyneuropathy, unspecified; E11.9 Type 2 diabetes mellitus without complications; Z88.8 Allergy status to other drugs, medicaments and biological substances; Z79.899 Other long term (current) drug therapy

== ENCOUNTER → 2021-06-29 | Outpatient (CLI) | payer OTHER ==
[~2021-06-29] VITALS: Ht 165.1 cm; Wt 73.1 kg
[~2021-06-29] MED LIST changes: +CARVEDILOL12.5 MG PO
[2021-06-29 10:17] VITALS: BP 135/94
--- NOTE | 2021-06-29 10:38 | NUR ---
Pain Clinic Assessment: 1. History of Osteoarthritis: SPINE Left Upper Extremity Right Upper Extremity History of Rheumatoid Arthritis: Not Applicable 2. Height: 5 ft. 5 in. 165.1 cm. Weight: 161.2 lb. oz. 73.120 kg. Patient's BMI: 26.8 3. Vital Signs: BP: 135/94 Pulse: 88 Resp: 14 Temp: 02 Sat: 100 ECG Mon: 4. Pain Intensity: 5 5. Fall Risk: Dizziness: N Needs help standing or walking: N Fallen in the last 3 months: N Fall risk comments: 6. Patient on Blood Thinner: None 7. History of Hypertension: Y 8. Opioid Therapy greater than 6 weeks: N Opiate Contract Signed: 06/28/16 9. Risk Assessment Tool Provided: 1-LOW 10. Functional Assessment Tool: 11. Recreational Drug Use: Never Drug Type: Tobacco Use: Never Smoker Tobacco Type: Amount or Packs/day: How Many Years: Alcohol Use: Yes Frequency: Quant:
== END ==
LOC: PAIN 08:58
PROVIDERS: ATTEND Anesthesiology Pain Medicine
DX: G89.29 Other chronic pain (principal); M54.16 Radiculopathy, lumbar region; E11.9 Type 2 diabetes mellitus without complications; E78.5 Hyperlipidemia, unspecified; I10 Essential (primary) hypertension; K21.9 Gastro-esophageal reflux disease without esophagitis; Z88.8 Allergy status to other drugs, medicaments and biological substances; Z79.899 Other long term (current) drug therapy